=== PATIENT | male | born 1950 | race Caucasian/White ===

== ENCOUNTER → 2017-06-20 | Outpatient (CLI) | payer OTHER, MEDICARE ==
[~2017-06-20] MED LIST: ASPIR 8181 M1 PO; COMBIVENT INH14.7 GM IH; COMBIVENT RESPIM4 GM IH; METOPROLOL SUCC25 MG PO; METOPROLOL TART25 MG PO; NEXIUM40 MG PO; NITRO-DUR1 EAC5 TD; NITROSTAT0.4 MG SL; THEOPHYLLINE600 MG PO
== END | disposition home or self-care (01) ==
LOC: CDC 14:34
DX: Z01.810 Encounter for preprocedural cardiovascular examination (principal); K80.10 Calculus of gallbladder with chronic cholecystitis without obstruction; R94.31 Abnormal electrocardiogram [ECG] [EKG]
CPT/HCPCS: 93000

== ENCOUNTER 2017-08-03 05:22 | Day surgery (SDC) | payer OTHER ==
[~2017-08-03] VITALS: Ht 162.6 cm; Wt 77.1 kg
[2017-08-03] VITALS (8 sets, daily range): BP systolic 118–163; BP diastolic 70–86
[2017-08-03] MEDS ORDERED: NORCO 5/3251 TABLET PO (08:57)
== END 2017-08-03 21:30 | disposition home or self-care (01) ==
LOC: SDC
PROC: 0FB03ZX Excision of Liver, Percutaneous Approach, Diagnostic (ICD-10-PCS; principal; 2017-08-03)
PROC: 0FT44ZZ Resection of Gallbladder, Percutaneous Endoscopic Approach (ICD-10-PCS; principal; 2017-08-03)
PROC: BF131ZZ Fluoroscopy of Gallbladder and Bile Ducts using Low Osmolar Contrast (ICD-10-PCS; principal; 2017-08-03)
DX: K80.10 Calculus of gallbladder with chronic cholecystitis without obstruction (principal); J45.909 Unspecified asthma, uncomplicated; K21.0 Gastro-esophageal reflux disease with esophagitis; I25.10 Atherosclerotic heart disease of native coronary artery without angina pectoris; I25.2 Old myocardial infarction; Z79.82 Long term (current) use of aspirin; Z88.0 Allergy status to penicillin; Z87.891 Personal history of nicotine dependence
CPT/HCPCS: 74300; 88304; 88307; 88313; C1769; J0131; J1100; J1170; J2250; J2405; J2710; J2765; J3010; S0020; S0074